=== PATIENT | female | born 1995 | race Caucasian/White ===

== ENCOUNTER 2020-02-20 16:27 | Emergency (ER) | payer MEDICAID ==
[~2020-02-20] VITALS: Ht 157.5 cm; Wt 79.6 kg
--- NOTE | 2020-02-20 16:49 | PHYS DOC ---
Past History Past Medical History: Asthma Drug Use: None General Adult EDM: Chief Complaint: COUGH HPI: HPI: Patient is a 24-year-old female who presents with a 8 to 9-month history of cough with black-colored sputum. Patient has some mild shortness of breath associated with this. Patient was seen in [facility] in October and had a negative CT scanning. Patient to follow-up with her primary doctor this week and started on Singulair. Patient describes some mild dyspnea with exertion. Patient denies any fever or chills. Patient has a mild chest discomfort with breathing. Patient complains of some sinus drainage. Review of Systems: Review of Systems: Constitutional: Denies fever or chills Eyes: Denies change in visual acuity HENT: Complains of nasal congestion Respiratory: Complains of cough and some shortness of breath Cardiovascular: Denies chest pain or edema GI: Denies abdominal pain, nausea, vomiting, bloody stools or diarrhea : Denies dysuria Musculoskeletal: Denies back pain or joint pain Integument: Denies rash Neurologic: Denies headache, focal weakness or sensory changes Endocrine: Denies polyuria or polydipsia Lymphatic: Denies swollen glands Psychiatric: Denies depression or anxiety Allergies: Allergies: Allergies Coded Allergies Type Severity Reaction Last Updated Verified gluten Allergy Unknown 02/20/20 Yes Physical Exam: PE: Constitutional: Well developed, well nourished, no acute distress, non-toxic ap pearance. [] HENT: Normocephalic, atraumatic, bilateral external ears normal, mild pharyngeal erythema without tonsillar exudate or abscess, nose normal. [] Eyes: PERRLA, EOMI, conjunctiva normal, no discharge. [] Neck: Normal range of motion, no tenderness, supple, no stridor. [] Cardiovascular:Heart rate regular rhythm, peripheral pulses are intact, cap refill is brisk, no murmur Lungs & Thorax: Bilateral breath sounds clear to auscultation [] Abdomen: Bowel sounds normal, soft, no tenderness, no masses, no pulsatile masses. [] Skin: Warm, dry, no erythema, no rash. [] Back: No tenderness, no CVA tenderness. [] Extremities: No tenderness, no cyanosis, no clubbing, ROM intact, no edema. [] Neurologic: Alert and oriented X 3, normal motor function, normal sensory function, no focal deficits noted. [] Psychologic: Affect normal, judgement normal, mood normal. [] Current Patient Data: Vital Signs: Vital Signs Date Time Temp Pulse Resp B/P (MAP) Pulse Ox O2 Delivery O2 Flow Rate FiO2 02/20/20 16:41 98.5 82 18 144/76 (98) 97 Room Air EKG: EKG: [] Radiology/Procedures: Radiology/Procedures: [][place] [address] IMAGING REPORT Signed PATIENT: FERNANDO MARTINEZ EACCOUNT: [id number] : 1995 LOCATION: ER AGE: 24 SEX: F EXAM STATUS: REG ER ORD. PHYSICIAN: JEANNIE HARDY MD REASON: cough, shortness of breath PROCEDURE: PORTABLE CHEST 1V Study: CR PORTABLE CHEST 1V Indication: Cough. Shortness of breath. Comparison: None. Findings: The cardiomediastinal silhouette and mario alberto are unremarkable. No lobar consolidation, pleural effusion or pneumothorax. The aeration pattern of both lungs is essentially symmetric. Impression: No lobar consolidation to suggest an organizing pneumonia. Collectively, no acute radiographic abnormality of the chest. Electronically signed by: MANSOOR KULKARNI MD (02/20/2020 5:02 PM) [id number] DICTATED AND SIGNED BY: MANSOOR KULKARNI MD DATE: 02/20/20 1702 CC: JEANNIE HARDY MD; PCP,NO ~ Heart Score: Risk Factors: Risk Factors: DM, Current or recent (<one month) smoker, HTN, HLP, family history of CAD, obesity. Risk Scores: Score 0 - 3: 2.5% MACE over next 6 weeks - Discharge Home Score 4 - 6: 20.3% MACE over next 6 weeks - Admit for Clinical Observation Score 7 - 10: 72.7% MACE over next 6 weeks - Early Invasive Strategies Course & Med Decision Making: Course & Med Decision Making Pertinent Labs and Imaging studies reviewed. (See chart for details) [] 24-year-old female presents with cough with sputum for 8 or 9 months. Patient's lungs are clear vital signs are stable. Chest x-ray is negative. Patient needs referral to cleat feeder for further evaluation treatment. Dragon Disclaimer: [place] Disclaimer: This electronic medical record was generated, in whole or in part, using a voice recognition dictation system. Departure Departure: Impression: Primary Impression: Cough Disposition: 01 DC HOME SELF CARE/HOMELESS Condition: STABLE Referrals: PCP,KISHA (PCP) BUSHRA TOVAR MD Patient Instructions: Cough, Adult Additional Instructions: EMERGENCY DEPARTMENT GENERAL DISCHARGE INSTRUCTIONS THANK YOU for coming to [facility] Emergency Department (ED) today and trusting us with your care. We trust that you had a positive experience in our Emergency Department. If you wish to speak to the department Management you can contact the emergency department at YOUR FOLLOW UP INSTRUCTIONS ARE FOLLOWS: Do you have a private doctor? If you do not have a private doctor, please ask for a resource list of physicians or clinics that may be able to assist you with follow up care. The Emergency Physician has interpreted your x-rays. The X-ray specialist will also review them. If there is a change in the findings you will be notified in 48 hours when at all possible. A lab test or lab culture may have been done, your results will be reviewed and you will be notified if you need a change in treatment. ADDITIONAL INSTRUCTIONS AND INFORMATION Your care today has been supervised by a physician who is specially trained in emergency care. Many problems require more than one evaluation for a complete diagnosis and treatment. We recommend that you schedule your follow up appointment as recommended to ensure complete treatment of your illness or injury. If you are unable to obtain follow up care and continue to have a problem, or if your condition worsens we recommend that you return to the ED. We are not able to safely determine your condition over the phone nor are we able to give sound medical advice over the phone. For these safety reasons, if you call for medical advice we will ask you to come to the ED for further evaluation If you have any questions regarding these discharge instructions please call the ED at . SAFETY INFORMATION In the interest of safety, wellness, and injury prevention; we encourage you to wear your seatbelt, if you smoke; quit smoking, and we encourage your family to use protective helmet for bicycling and other sporting events that present an increased risk for head injury. IF YOUR SYMPTOMS WORSEN OR NEW SYMPTOMS DEVELOP, OR YOU HAVE CONCERNS ABOUT YOUR CONDITION; OR IF YOUR CONDITION WORSENS WHILE YOU ARE WAITING FOR YOUR FOLLOW UP APPOINTMENT; EITHER CONTACT YOUR PRIMARY CARE DOCTOR, THE PHYSICIAN WHOSE NAME AND NUMBER YOU WERE GIVEN, OR RETURN TO THE ED IMMEDIATELY. Scripts Fluticasone Propionate (Flonase Allergy Relief) 9.9 Ml [place].susp 2 SPRAYS NS DAILY for congestion, #1 BOTTLE Prov: JEANNIE HARDY MD 02/20/20 JEANNIE HARDY MD Feb 20, 2020 16:49
--- NOTE | 2020-02-20 17:05 | RAD ---
Study: CR PORTABLE CHEST 1V Indication: Cough. Shortness of breath. Comparison: None. Findings: The cardiomediastinal silhouette and mario alberto are unremarkable. No lobar consolidation, pleural effusion or pneumothorax. The aeration pattern of both lungs is essentially symmetric. Impression: No lobar consolidation to suggest an organizing pneumonia. Collectively, no acute radiographic abnormality of the chest. Electronically signed by: MANSOOR KULKARNI MD (02/20/2020 5:02 PM) [id number]
[2020-02-20] MEDS ORDERED: FLUT9.9S NS (17:11)
[2020-02-20 17:30] VITALS: BP 126/73
== END 2020-02-20 17:30 | disposition home or self-care (01) ==
LOC: ER 16:27
DX: R05 Cough (principal); R06.02 Shortness of breath; R07.89 Other chest pain; J45.909 Unspecified asthma, uncomplicated; Z88.8 Allergy status to other drugs, medicaments and biological substances
CPT/HCPCS: 71045; 99283

== ENCOUNTER 2020-03-06 20:12 | Emergency (ER) | payer MEDICAID ==
[~2020-03-06] VITALS: Ht 157.5 cm; Wt 79.6 kg
[2020-03-06 20:12] VITALS: BP 124/62
[~2020-03-06 20:12] MED LIST: FLUT9.9S NS
[2020-03-06 21:07] LABS: BILIRUBIN,URINE NEG (NEG); CLARITY,URINE CLEAR; COLOR,URINE STRAW; GLUCOSE,URINE NEG (NEG); NITRITE,URINE NEG (NEG); RBC,URINE 0 /HPF (0-2); UROBILINOGEN,URINE 0.2 mg/dL (0.2 mg/dL); WBC,URINE OCC /HPF (0-4)
[2020-03-06 21:08] LABS: BACTERIA,URINE 0 /HPF (0-FEW); SQUAMOUS EPITHELIAL CELL,UR FEW /LPF
[2020-03-06] MEDS ORDERED: cefTRIAXone IM 250 MG VIAL IM ONE (21:45)
[2020-03-06] MEDS ORDERED: ONDANSETRON ODT 4 MG TAB.RAPDIS PO ONE (21:45)
[2020-03-06] MEDS ORDERED: AZITHROMYCIN 250 MG TABLET. PO ONE (21:45)
[2020-03-06] MEDS ORDERED: ONDANSETRON ODT 4 MG TAB.RAPDIS ONE (21:53)
[2020-03-06] MEDS ORDERED: AZITHROMYCIN 250 MG TABLET. ONE (21:53)
[2020-03-06] MEDS ORDERED: CLOT15CR5 TP (22:17)
--- NOTE | 2020-03-06 22:18 | PHYS DOC ---
Past History Past Medical History: Asthma Past Surgical History: Cholecystectomy, , Tonsillectomy, Other Additional Past Surgical Histo: ADNIODECTOMY; ACL RIGHT KNEE REPAIR Alcohol Use: Occasionally Drug Use: None Adult General Chief Complaint Chief Complaint: PAIN ON URINATION [facility] Patient is a 24-year-old female who presents to the emergency room with vaginal discharge, vaginal irritation for the last 2 days. She had a positive test last week. She has not had ultrasound yet. She denies any cramping or vaginal bleeding. She is concerned that she may have a sexually transmitted disease. She does have some burning with urination. Review of Systems Review of Systems Complete ROS is negative unless otherwise documented in HPI Current Medications Current Medications Current Medications Medications (Trade) Dose Ordered Sig/Jeff Start Time Stop Time Status Last Admin Dose Admin Azithromycin (Zithromax) 250 mg STK-MED ONCE 03/06/20 21:53 03/06/20 21:53 DC Ceftriaxone Sodium (Rocephin Im) 250 mg 1X ONCE 03/06/20 21:45 03/06/20 21:52 DC 03/06/20 21:55 250 MG Ondansetron HCl (Zofran Odt) 4 mg STK-MED ONCE 03/06/20 21:53 03/06/20 21:53 DC Allergies Allergies Allergies Coded Allergies Type Severity Reaction Last Updated Verified gluten Allergy Unknown 02/20/20 Yes Physical Exam Physical Exam Constitutional: Well developed, well nourished, no acute distress, non-toxic appearance. HENT: Normocephalic, atraumatic, bilateral external ears normal, nose normal. Eyes: PERRLA, EOMI, conjunctiva normal, no discharge. Neck: Normal range of motion, no stridor. Cardiovascular: Heart rate regular rhythm Lungs & Thorax: Respirations even and unlabored, no retractions, no respiratory distress Pelvic Exam: Maintenance Planning Clerk present Abdomen: Nontender, soft External Genitalia: Normal Skin Speculum: Normal vaginal mucosa, white/yellow vaginal discharge Bimanual: No adnexal masses or tenderness, No CMT Skin: Warm, dry, no erythema, no rash. Back: No tenderness Extremities: No cyanosis, ROM intact, no edema. Neurologic: Alert and oriented X 3, no focal deficits noted. Psychologic: Affect normal, judgement normal, mood normal. Current Patient Data Lab Results Laboratory Tests Test 03/06/20:21 03/06/20 20:29 Urine Collection Type Unknown Urine Color Straw Urine Clarity Clear Urine pH 7.0 Urine Specific [place] >=1.030 Urine Protein Neg (NEG-TRACE) Urine Glucose (UA) Neg mg/dL (NEG) Urine Ketones (Stick) Neg mg/dL (NEG) Urine Blood Neg (NEG) Urine Nitrite Neg (NEG) Urine Bilirubin Neg (NEG) Urine Urobilinogen Dipstick 0.2 mg/dL (0.2 mg/dL) Urine Leukocyte Esterase Neg (NEG) Urine RBC 0 /HPF (0-2) Urine WBC Occ /HPF (0-4) Urine Squamous Epithelial Cells Few /LPF Urine Bacteria 0 /HPF (0-FEW) POC Urine HCG, Qualitative hcg positive (Negative) Microbiology 03/06/20 Wet Prep - Final, Complete EKG EKG [] Radiology/Procedures Radiology/Procedures [] Heart Score Risk Factors: Risk Factors: DM, Current or recent (<one month) smoker, HTN, HLP, family history of CAD, obesity. Risk Scores: Risk Factors: DM, Current or recent (<one month) smoker, HTN, HLP, family history of CAD, obesity. Course & Med Decision Making Course & Med Decision Making Pertinent Labs and Imaging studies reviewed. (See chart for details) Patient 24-year-old female presents to the emergency room with vaginal discharge. She does not have any abdominal pain or bleeding. She does not need an ultrasound for at this time. She was treated empirically for STDs. Wet mount was done and was negative. She does have some excoriations which could be related to Maty and will be prescribed a cream. Patient's test results and vitals while in the ED were fully reviewed and discussed with the patient. Patient is stable and at this time does not need admission to the hospital. We have discussed strict return precautions and the importance of following up with their Primary Care Physician. Patient stated understanding and was given an opportunity to ask any questions. Patient is in agreement with plan. Dragon Disclaimer Dragon Disclaimer This electronic medical record was generated, in whole or in part, using a voice recognition dictation system. Departure Departure: Impression: Primary Impression: Cervicitis Additional Impressions: Yeast dermatitis Disposition: 01 DC HOME SELF CARE/HOMELESS Condition: STABLE Referrals: PCP,NO (PCP) Patient Instructions: Sexually Transmitted Disease Scripts Clotrimazole/Betamethasone Dip (CLOTRIMAZOLE-BETAMETHASONE CRM) 15 Gm Cream..g. 1 DIMPLE TP BID for yeast, #30 GM 1 Refill Prov: MANDY AMBROSE MD 03/06/20 Problem Qualifiers MANDY AMBROSE MD Mar 06, 2020 22:17
== END 2020-03-06 22:25 | disposition home or self-care (01) ==
LOC: ER 20:12
DX: O23.511 Infections of cervix in pregnancy, first trimester (principal); O23.599 Infection of other part of genital tract in pregnancy, unspecified trimester; O99.511 Diseases of the respiratory system complicating pregnancy, first trimester; J45.909 Unspecified asthma, uncomplicated; Z3A.00 Weeks of gestation of pregnancy not specified; Z90.49 Acquired absence of other specified parts of digestive tract; Z98.890 Other specified postprocedural states; Z88.8 Allergy status to other drugs, medicaments and biological substances
CPT/HCPCS: 81001; 81025; 87491; 87591; 96372; 99284; J0456; J0696; Q0111; Q0162

== ENCOUNTER 2020-03-23 16:01 | Emergency (ER) | payer MEDICAID ==
[~2020-03-23] VITALS: Ht 162.6 cm; Wt 77.1 kg
[~2020-03-23 16:01] MED LIST changes: +CLOT15CR5 TP
[2020-03-23 16:31] VITALS: BP 137/66
--- NOTE | 2020-03-23 17:06 | PHYS DOC ---
Past History Past Medical History: Asthma (KEVIN CARRILLO DO) Past Surgical History: Cholecystectomy, , Tonsillectomy, Other Additional Past Surgical Histo: ADNIODECTOMY; ACL RIGHT KNEE REPAIR (KEVIN CARRILLO DO) Alcohol Use: None Drug Use: None (KEVIN CARRILLO DO) Adult General Chief Complaint Chief Complaint: VAGINAL BLEEDING HPI HPI Patient is a currently at approximately 8w0d per first day of last menstrual period who presents for abdominal cramping and lower back pain. She reports being more physically active than usual performing more housework chores in the past 24 hours such as extensive amounts of laundry etc. Nonetheless, she is concerned because she suffered a miscarriage last spring and reports symptoms similar to this today, vague suprapubic cramping and lower back pain. She is concerned for potential vaginal bleeding but has not recognized any during routine self checks. She is pending her first OB visit this upcoming week. She has no fever, no COVID-19 symptoms, no chest pain or shortness of breath, no changes in bladder and/or bowel function, no changes in motor or sensory function, no neurologic deficits (KEVIN CARRILLO DO) Review of Systems Review of Systems Fourteen body systems of review of systems have been reviewed. See HPI for pertinent positives and negative responses, other tucker all other systems are negative, non-pertinent or non-contributory (KEVIN CARRILLO DO) Allergies Allergies Allergies Coded Allergies Type Severity Reaction Last Updated Verified gluten Allergy Unknown 02/20/20 Yes (KEVIN CARRILLO DO) Physical Exam Physical Exam Constitutional: Well developed, well nourished, no acute distress, non-toxic appearance. HENT: Normocephalic, atraumatic, bilateral external ears normal, oropharynx moist, no oral exudates, nose normal. Eyes: PERRLA, EOMI, conjunctiva normal, no discharge. Neck: Normal range of motion, no tenderness, supple, no stridor. Cardiovascular: Heart rate regular, sinus rhythm, no murmurs rubs or gallops Lungs & Thorax: Bilateral breath sounds clear to auscultation Abdomen: Bowel sounds normal, soft, no tenderness, no masses, no pulsatile masses. Nonsurgical abdomen, no peritoneal signs : External genitalia unremarkable, mild physiologic discharge present in vaginal vault without any obvious signs of trauma, no bleeding, no retained foreign body, cervix well-appearing and closed without blood or products of conception present Skin: Warm, dry, no erythema, no rash. Back: No midline tenderness, no CVA tenderness. Tight right-sided paraspinal muscles to palpation Extremities: No tenderness, no cyanosis, no clubbing, ROM intact, no edema. Neurologic: Alert and oriented X 3, normal motor & sensory function, no focal deficits noted. Psychologic: Affect normal, judgement normal, anxious mood (KEVIN CARRILLO DO) Current Patient Data Vital Signs Vital Signs Date Time Temp Pulse Resp B/P (MAP) Pulse Ox O2 Delivery O2 Flow Rate FiO2 03/23/20 16:31 98.1 85 18 137/66 (89) 100 Lab Results Laboratory Tests Test 03/23/20 17:09 03/23/20 17:40 Urine Collection Type Unknown Urine Color Yellow Urine Clarity Clear Urine pH 7.0 Urine Specific [place] 1.020 Urine Protein Neg (NEG-TRACE) Urine Glucose (UA) Neg mg/dL (NEG) Urine Ketones (Stick) Neg mg/dL (NEG) Urine Blood Neg (NEG) Urine Nitrite Neg (NEG) Urine Bilirubin Neg (NEG) Urine Urobilinogen Dipstick 0.2 mg/dL (0.2 mg/dL) Urine Leukocyte Esterase Neg (NEG) Urine RBC 0 /HPF (0-2) Urine WBC Rare /HPF (0-4) Urine Squamous Epithelial Cells Few /LPF Urine Bacteria 0 /HPF (0-FEW) Urine Yeast Present /HPF Urine Test Positive (NEG) White Blood Count 10.0 x10^3/uL (4.0-11.0) Red Blood Count 4.10 x10^6/uL (3.50-5.40) Hemoglobin 12.4 g/dL (12.0-15.5) Hematocrit 37.9 % (36.0-47.0) Mean Corpuscular Volume 93 fL (79-100) Mean Corpuscular Hemoglobin 30 pg (25-35) Mean Corpuscular Hemoglobin Concent 33 g/dL (31-37) Red Cell Distribution Width 12.6 % (11.5-14.5) Platelet Count 245 x10^3/uL (140-400) Neutrophils (%) (Auto) 71 % (31-73) Lymphocytes (%) (Auto) 21 % (24-48) Monocytes (%) (Auto) 6 % (0-9) Eosinophils (%) (Auto) 2 % (0-3) Basophils (%) (Auto) 1 % (0-3) Neutrophils # (Auto) 7.2 x10^3uL (1.8-7.7) Lymphocytes # (Auto) 2.1 x10^3/uL (1.0-4.8) Monocytes # (Auto) 0.6 x10^3/uL (0.0-1.1) Eosinophils # (Auto) 0.2 x10^3/uL (0.0-0.7) Basophils # (Auto) 0.1 x10^3/uL (0.0-0.2) Maternal Serum HCG Beta Subunit 71665 mIU/mL (0-6) Sodium Level 142 mmol/L (136-145) Potassium Level 4.4 mmol/L (3.5-5.1) Chloride Level 105 mmol/L (98-107) Carbon Dioxide Level 23 mmol/L (21-32) Anion Gap 14 (6-14) Blood Urea Nitrogen 9 mg/dL (7-20) Creatinine 0.8 mg/dL (0.6-1.0) Estimated GFR (Cockcroft-Gault) 86.7 BUN/Creatinine Ratio 11 (6-20) Glucose Level 107 mg/dL (70-99) Calcium Level 8.8 mg/dL (8.5-10.1) Total Bilirubin 0.1 mg/dL (0.2-1.0) Aspartate Amino Transf (AST/SGOT) 23 U/L (15-37) Alanine Aminotransferase (ALT/SGPT) 28 U/L (14-59) Alkaline Phosphatase 81 U/L (46-116) Total Protein 7.3 g/dL (6.4-8.2) Albumin 3.4 g/dL (3.4-5.0) Albumin/Globulin Ratio 0.9 (1.0-1.7) (KEVIN CARRILLO DO) EKG EKG [] (KEVIN CARRILLO DO) Radiology/Procedures Radiology/Procedures PROCEDURE: PREG 1ST TRIMESTER OB ultrasound less than 14 weeks to include transabdominal and transvaginal imaging 03/15/2020 CLINICAL HISTORY: First trimester with pelvic pain. TECHNIQUE: Using the distended urinary bladder as a sonographic window, a real-time ultrasound examination of pelvis was performed. Additionally in an attempt to better evaluate the uterus and adnexa, a transvaginal ultrasound study was performed. Multiple images were obtained. FINDINGS: A gestational sac is seen within the endometrial canal within the fundus of the uterus. Within this gestational sac an embryonic pole and associated yolk sac are seen. The CRL of this embryonic pole measures 1.42 cm. This corresponds to an estimated gestational age by ultrasound of 7 weeks 5 days plus or minus a standard deviation of 5 days. Embryonic cardiac activity is seen with a heart rate of 144 bpm. The placenta is not yet developed. The amniotic fluid volume is within normal limits. No focal abnormality of the uterus is seen. The right ovary is not visualized due to overlying bowel gas. The left ovary is normal in size and echogenicity. It measures 2.2 x 1.1 x 1.1 cm in size. No adnexal mass is seen. No free fluid is noted. IMPRESSION: Single living IUP with an estimated gestational age by ultrasound of 7 weeks 5 days plus or minus a standard deviation of 5 days. The estimated date of delivery by ultrasound is 11/04/2020. Electronically signed by: Waldo Garcia MD (03/23/2020 6:21 PM) [id number] (KEVIN CARRILLO DO) Heart Score Risk Factors: Risk Factors: DM, Current or recent (<one month) smoker, HTN, HLP, family history of CAD, obesity. Risk Scores: Risk Factors: DM, Current or recent (<one month) smoker, HTN, HLP, family history of CAD, obesity. (KEVIN CARRILLO DO) Course & Med Decision Making Course & Med Decision Making ABCs unremarkable, patient nontoxic-appearing and ambulatory without any concerning signs or symptoms on history or physical exam for emergent and/or surgical pathology ER work-up grossly unremarkable. I advised continued supportive care for patients likely musculoskeletal back pain in nature with Tylenol and heating pad etc. I advised her to follow-up with her MARKETING GRAPHICS SPECIALIST physician this upcoming week for repeat ultrasound and beta-hCG analysis as previously scheduled. Strict return precautions were discussed with good understanding by patient, all questions and concerns addressed prior to ER departure in stable condition (KEVIN CARRILLO DO) Course & Med Decision Making See Dr. Carrillo chart for details. Pt. discharged at shift change. Following Dr. Carrillo instructions. Pt. to follow-up with primary care. Return if any emergent changes. (ELOISA BALDERRAMA MD) Dragon Disclaimer Dragon Disclaimer This electronic medical record was generated, in whole or in part, using a voice recognition dictation system. (KEVIN CARRILLO DO) Departure Departure: Impression: Primary Impression: Vaginal bleeding during Additional Impression: Low back strain Disposition: 01 DC HOME SELF CARE/HOMELESS Condition: STABLE Referrals: PCP,UNKNOWN (PCP) Patient Instructions: Back Injury Prevention, Low Back Strain with Rehab- [facility] Additional Instructions: As discussed prior to ED departure, please ensure you follow up with your OB this upcoming week as previously scheduled Use the attached informational resources to assist in your efforts to provide self supportive care ahead of your OB-DRIVER HELPER visit. If any concerning signs or symptoms present prior to ED departure please don't hesitate to come back for repeat evaluation. It was a pleasure to take care of you and I wish you a speedy recovery! Scripts Cyclobenzaprine Hcl (CYCLOBENZAPRINE HCL) 5 Mg Tablet 1 TAB PO QHS for Muscle Spasm, #15 TAB Prov: KEVIN CARRILLO DO 03/23/20 Dragon Disclaimer This chart was dictated in whole or in part using Voice Recognition software in a busy, high-work load, and often noisy Emergency Department environment. It may contain unintended and wholly unrecognized errors or omissions. (ELOISA BALDERRAMA MD) Dragon Disclaimer This chart was dictated in whole or in part using Voice Recognition software in a busy, high-work load, and often noisy Emergency Department environment. It may contain unintended and wholly unrecognized errors or omissions. (KEVIN CARRILLO DO) Problem Qualifiers KEVIN CARRILLO DO Mar 23, 2020 17:06 ELOISA BALDERRAMA MD Mar 24, 2020 03:58
[2020-03-23 17:36] LABS: BACTERIA,URINE 0 /HPF (0-FEW); BILIRUBIN,URINE NEG (NEG); CLARITY,URINE CLEAR; COLOR,URINE YELLOW; GLUCOSE,URINE NEG (NEG); NITRITE,URINE NEG (NEG); RBC,URINE 0 /HPF (0-2); SQUAMOUS EPITHELIAL CELL,UR FEW /LPF; U PREG PATIENT POSITIVE (NEG); UROBILINOGEN,URINE 0.2 mg/dL (0.2 mg/dL); WBC,URINE RARE /HPF (0-4)
[2020-03-23 17:37] LABS: YEAST,URINE PRESENT /HPF
[2020-03-23 17:53] LABS: BASO # 0.1 x10^3/uL (0.0-0.2); BASO % 1 % (0-3); EOS # 0.2 x10^3/uL (0.0-0.7); EOS % 2 % (0-3); HEMATOCRIT 37.9 % (36.0-47.0); HEMOGLOBIN 12.4 g/dL (12.0-15.5); LYMPH # 2.1 x10^3/uL (1.0-4.8); LYMPH % 21 % (24-48); MEAN CORPUSCULAR HEMOGLOBIN 30 pg (25-35); MEAN CORPUSCULAR HGB CONC 33 g/dL (31-37); MEAN CORPUSCULAR VOLUME 93 fL (79-100); MONO # 0.6 x10^3/uL (0.0-1.1); MONO % 6 % (0-9); NEUT # 7.2 x10^3uL (1.8-7.7); NEUT % 71 % (31-73); PLATELET COUNT 245 x10^3/uL (140-400); RED CELL DISTRIBUTION WIDTH 12.6 % (11.5-14.5)
--- NOTE | 2020-03-23 18:24 | RAD ---
OB ultrasound less than 14 weeks to include transabdominal and transvaginal imaging 03/15/2020 CLINICAL HISTORY: First trimester with pelvic pain. TECHNIQUE: Using the distended urinary bladder as a sonographic window, a real-time ultrasound examination of pelvis was performed. Additionally in an attempt to better evaluate the uterus and adnexa, a transvaginal ultrasound study was performed. Multiple images were obtained. FINDINGS: A gestational sac is seen within the endometrial canal within the fundus of the uterus. Within this gestational sac an embryonic pole and associated yolk sac are seen. The CRL of this embryonic pole measures 1.42 cm. This corresponds to an estimated gestational age by ultrasound of 7 weeks 5 days plus or minus a standard deviation of 5 days. Embryonic cardiac activity is seen with a heart rate of 144 bpm. The placenta is not yet developed. The amniotic fluid volume is within normal limits. No focal abnormality of the uterus is seen. The right ovary is not visualized due to overlying bowel gas. The left ovary is normal in size and echogenicity. It measures 2.2 x 1.1 x 1.1 cm in size. No adnexal mass is seen. No free fluid is noted. IMPRESSION: Single living IUP with an estimated gestational age by ultrasound of 7 weeks 5 days plus or minus a standard deviation of 5 days. The estimated date of delivery by ultrasound is 11/04/2020. Electronically signed by: Waldo Garcia MD (03/23/2020 6:21 PM) [id number]
[2020-03-23] MEDS ORDERED: CYCL5TAB PO (18:57)
[2020-03-23 19:59] LABS: ALBUMIN 3.4 g/dL (3.4-5.0); ALBUMIN/GLOBULIN RATIO 0.9 (1.0-1.7); CALCIUM 8.8 mg/dL (8.5-10.1); CREATININE 0.8 mg/dL (0.6-1.0); GFR 86.7; TOTAL BILIRUBIN 0.1 mg/dL (0.2-1.0); TOTAL PROTEIN 7.3 g/dL (6.4-8.2)
[2020-03-23 20:00] LABS: POTASSIUM 4.4 mmol/L (3.5-5.1)
== END 2020-03-23 19:08 | disposition home or self-care (01) ==
LOC: ER 16:01
DX: O99.511 Diseases of the respiratory system complicating pregnancy, first trimester (principal); S39.012A Strain of muscle, fascia and tendon of lower back, initial encounter; R10.9 Unspecified abdominal pain; O26.891 Other specified pregnancy related conditions, first trimester; J45.909 Unspecified asthma, uncomplicated; Z3A.01 Less than 8 weeks gestation of pregnancy; Z88.8 Allergy status to other drugs, medicaments and biological substances; X50.9XXA Other and unspecified overexertion or strenuous movements or postures, initial encounter; Y93.89 Activity, other specified; Y92.89 Other specified places as the place of occurrence of the external cause; Y99.8 Other external cause status
CPT/HCPCS: 36415; 76801; 80053; 81001; 81025; 84702; 85025; 99284